=== PATIENT | female | born 1985 | race Two or more races ===

== ENCOUNTER 2016-09-04 04:11 | Emergency (ER) | payer OTHER ==
[2016-09-04 07:02] LABS: BASO % 0.2 % (0.0-1.0); EOS # 0.2 K/mm3 (0.0-0.50); EOS % 2.9 % (0.0-3.0); LARGE UNSTAINED CELL # 0.1 K/mm3 (0.0-0.4); LYMPH % 13.6 % (24.0-44.0); MEAN CORPUSCULAR HEMOGLOBIN 29.9 pg (27.0-33.0); MEAN CORPUSCULAR HGB CONC 35.4 g/dl (32.0-36.5); MEAN CORPUSCULAR VOLUME 84.7 fl (80.0-96.0); MONO # 0.3 K/mm3 (0.0-0.8); MONO % 4.4 % (0.0-5.0); NEUTROPHILS # 5.8 K/mm3 (1.8-7.7); NEUTROPHILS % 77.9 % (36.0-66.0); PLATELET COUNT, AUTOMATED 209 k/mm3 (150-450); RED CELL DISTRIBUTION WIDTH 13.6 % (11.5-14.5); WHITE BLOOD COUNT 7.4 K/mm3 (4.0-10.0)
[2016-09-04 07:23] LABS: CONTROL LINE HCG INT CTR LINE PRESENT
[2016-09-04 07:36] LABS: ALBUMIN 3.8 GM/DL (3.2-5.2); ALBUMIN/GLOBULIN RATIO 0.86 (1.00-1.93); ALKALINE PHOSPHATASE 144 U/L (45-117); ALT/SGPT 40 U/L (12-78); AMYLASE 53 U/L (25-115); ANION GAP 11 MEQ/L (8-16); AST/SGOT 25 U/L (15-37); BILIRUBIN,DIRECT < 0.1 MG/DL (0.0-0.2); BILIRUBIN,TOTAL 0.5 MG/DL (0.2-1.0); BLOOD UREA NITROGEN 13 MG/DL (7-18); CALCIUM LEVEL 8.2 MG/DL (8.5-10.1); CARBON DIOXIDE LEVEL 22 MEQ/L (21-32); CHLORIDE LEVEL 107 MEQ/L (98-107); CREATININE FOR GFR 0.59 MG/DL (0.55-1.02); GLOMERULAR FILTRATION RATE > 60.0 (>60); GLUCOSE, FASTING 89 MG/DL (70-105); POTASSIUM SERUM 3.9 MEQ/L (3.5-5.1); SODIUM LEVEL 140 MEQ/L (136-145); TOTAL PROTEIN 8.2 GM/DL (6.4-8.2)
--- NOTE | 2016-09-04 08:06 | EDDOCDS ---
Physician Documentation [facility] Name: Joleen Wilburn Age: 31 yrs Sex: Female : 1985 Arrival Date: 09/04/2016 Time: 04:11 Bed 13 Private MD: Disposition: 09/04/16 08:00 Discharged to Home/Self Care. Impression: Upper abdominal pain, unspecified. - Condition is Stable. - Discharge Instructions: Abdominal Pain, Adult, Gastritis, Adult. - Prescriptions for Tagamet HB 200 mg Oral tablet - take 1 tablet by ORAL route once daily 30 minutes before meals; 30 tablet. - Medication Reconciliation, Local Pharmacy Hours form. - Follow up: Mirta Shaw, Family Practice; When: 1 - 2 days. - Problem is new. - Symptoms have improved. - Notes: clear liquid diet for 24 hrs, then bland diet as discussed. try tagament. please follow up with PCP in 1-2 days. If persistent pain I would recommend a gallbladder ultrasound. Today all lab tests were normal and pain seems more of gastritis in nature. Return if fever, increasing pain or other concerns Historical: - Allergies: No known drug Allergies; - Home Meds: 1. Tylenol 325 mg Oral tab 2 tabs every 4-6 hours couple hours ago - PMHx: none; - PSHx: none; - Social history: Smoking status: Patient states was never smoker of tobacco. No barriers to communication noted, The patient speaks fluent Hungarian, Speaks appropriately for age. - Family history: Not pertinent. - : The pt / caregiver states he / she is not on anticoagulants. Home medication list is obtained from the patient. - Exposure Risk Screening:: None identified. 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 11 in. (149.86 cm); Pain 8/10; 08:03 BP 110 / 76 RA Supine (auto/reg); Pulse 98; js13 08:03 BP 112 / 74 RA Sitting (auto/reg); Pulse 99; js13 08:03 BP 115 / 76 RA Standing (auto/reg); Pulse 97; Resp 14; Temp 97.8(O); Pulse Ox 99% on js13 R/A; Pain 2/10; 04:17 Body Mass Index 26.86 (60.33 kg, 149.86 cm) ko2 MDM: 04:29 [facility] Payment Agreement was scanned into [employer] and attached to record. [facility] 06:17 Financial registration complete. pm4 06:33 Orthostatic VS ordered. cs11 06:33 IV Saline Lock ordered. cs11 06:33 NS 0.9% 1000 ml IV at bolus once ordered. cs11 06:34 CBC with Diff Ordered. EDMS 06:34 MED Profile Ordered. EDMS 06:34 Liver Profile Ordered. EDMS 06:34 Amylase Ordered. EDMS 06:34 Lipase Ordered. EDMS 06:34 HCG,Serum Qualitative Ordered. EDMS 07:30 CBC with Diff Reviewed. ml 07:30 HCG,Serum Qualitative Reviewed. ml 07:46 MED Profile Reviewed. ml 07:46 Liver Profile Reviewed. ml 07:46 Amylase Reviewed. ml 07:46 Lipase Reviewed. ml 07:46 HCG,Serum Qualitative Reviewed. ml Administered Medications: 06:50 Drug: NS 0.9% 1000 ml [sodium chloride 0.9 % intravenous solution] Route: IV; Rate: jp6 bolus; Site: left antecubital; 08:05 Follow up: IV Status: Completed infusion; IV Intake: 1000ml js13 Signatures: Dispatcher [employer] EDMS Whitney Durant MD MD ml Sullivan, Jennifer,RN RN js13 Gilles Ruano, DO cs11 Sally CappsRN RN gustavo2 Jael Starks [facility] Andrew Tanner, Reg Reg pm4 Marielena Parkinson RN jp6 The chart was reviewed and I authenticate all verbal orders and agree with the evaluation and treatment provided.Corrections: (The following items were deleted from the chart) 08:01 06:34 URINALYSIS+LAB ordered. EDMS EDMS 08:01 06:34 URINE CULTURE+GRACIELA ordered. EDMS EDMS Attachments: 04:29 [facility] Payment Agreement [facility] MTDD
--- NOTE | 2016-09-04 08:07 | EDDOCDS ---
Nurse's Notes [facility] Name: Joleen Wilburn Age: 31 yrs Sex: Female : 1985 Arrival Date: 09/04/2016 Time: 04:11 Bed 13 Private MD: Diagnosis: Upper abdominal pain, unspecified Presentation: 09/04 04:15 Presenting complaint: Patient states: upper abdominal pain and diarrhea that started ko2 last night as well as nausea. Pt got an IUD put in last week and has had some bleeding. Risk factors: the patient reports a small or scant amount of vaginal bleeding. Suicide/Homicide risk assessment- the patient denies having any suicidal and/or homicidal ideations and does not present with any other emotional, behavioral or mental health complaints. Status: The patient is a dependent. Transition of care: patient was not received from another setting of care. 04:15 Acuity: LO Level 3 ko2 04:15 Method Of Arrival: Walkin/Carried/Asstd ko2 04:22 Adult Sepsis Screening: The patient does not have new or worsening altered mentation. ko2 Patient's respiratory rate is less than 22. Systolic blood pressure is greater than 100. Patient has a qSOFA score of 0- Negative Sepsis Screen. Triage Assessment: 04:21 General: Appears in no apparent distress, Behavior is appropriate for age, cooperative. ko2 Pain: Location: right upper quadrant and left upper quadrant Pain currently is 8 out of 10 on a pain scale. HIV screening NA for this visit. The patient is triaged at the bedside. See Assessment in Nurses Notes section of ED record. Neurological: Level of Consciousness is awake, alert. Respiratory: Airway is patent. GI: Reports diarrhea. Derm: Skin is normal. 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 Tylenol 325 mg Oral tab 2 tabs every 4-6 hours couple hours ago - PMHx: none; - PSHx: none; - Social history: Smoking status: Patient states was never smoker of tobacco. No barriers to communication noted, The patient speaks fluent Mexican, Speaks appropriately for age. - Family history: Not pertinent. - : The pt / caregiver states he / she is not on anticoagulants. Home medication list is obtained from the patient. - Exposure Risk Screening:: None identified. Screenin:51 Screening information is obtained from the patient. Fall risk: No risks identified. jp6 Assistance ADL's: requires no assistance with activities of daily living. Abuse/DV Screen: The patient / caregiver reports he/she is: not in a situation that causes fear, pain or injury. Nutritional screening: No deficits noted. Advance Directives: Currently, there is no health care proxy. There is no active DNR order. There is no living will. home support is adequate. Assessment: 06:51 Reassessment: Patient appears in no apparent distress at this time. General: Appears in jp6 no apparent distress, well developed, well nourished, Behavior is appropriate for age, cooperative. Pain: Location: abdomen Pain currently is 5 out of 10 on a pain scale. Neurological: No deficits noted. EENT: No deficits noted. Cardiovascular: No deficits noted. Heart tones S1 S2 present. Respiratory: No deficits noted. Airway is patent Respiratory effort is even, unlabored, Respiratory pattern is regular, symmetrical, Breath sounds are clear bilaterally. GI: Abdomen is non- distended Bowel sounds present X 4 quads. present in umbilical area, right upper quadrant, left upper quadrant, right lower quadrant and left lower quadrant Abd is soft and non tender X 4 quads. pt does state high upper abd is sore with touch. : No deficits noted. Derm: Skin is pink, warm & dry. Musculoskeletal: No deficits noted. 07:26 General: Appears in no apparent distress, Behavior is appropriate for age, cooperative. js13 Pain: Pain currently is 4 out of 10 on a pain scale. Neurological: Level of Consciousness is awake, alert. Respiratory: Airway is patent Respiratory effort is even, unlabored, Respiratory pattern is regular, symmetrical, Breath sounds are clear. GI: Abdomen is non- distended Bowel sounds present X 4 quads. Abd is soft and non tender. Derm: Skin is pink, warm & dry. 07:26 General: Patient states that she has a 5 month old at home that she breast feeds js13 only and does not bottle feed at all. Patient states she needs to get home to feed infant as they do not pump and bottle feed. . Vital Signs: 04:17 BP 127 / 86; Pulse 103; Resp 16; Temp 97.8(TE); Pulse Ox 99% ; Weight 60.33 kg; Height ko2 4 ft. 11 in. (149.86 cm); Pain 8/10; 08:03 BP 110 / 76 RA Supine (auto/reg); Pulse 98; js13 08:03 BP 112 / 74 RA Sitting (auto/reg); Pulse 99; js13 08:03 BP 115 / 76 RA Standing (auto/reg); Pulse 97; Resp 14; Temp 97.8(O); Pulse Ox 99% on js13 R/A; Pain 2/10; 04:17 Body Mass Index 26.86 (60.33 kg, 149.86 cm) ko2 Vitals: 04:17 Log In Time: September 04, 2016 at 04:11. ko2 ED Course: 04:12 Patient visited by Andrew Tanner Reg. pm4 04:12 Patient moved to Waiting pm4 04:16 Triage Initiated ko2 04:28 Patient name changed from Joleen\S\\S\Essence-Lázaro\S\ to Joleen\S\ \S\Essence-Lázaro. EDMS 04:29 [facility] Payment Agreement was scanned into [employer] and attached to record. sl 06:02 Patient moved to Aug 06:15 Gilles Ruano DO is Attending Physician. cs11 06:15 Patient visited by Gilles Ruano DO. cs11 06:29 Marielena Parkinson,HARPER is Primary Nurse. jp6 06:51 The patient / caregiver is instructed regarding the plan of care and ED course. jp6 06:51 Inserted saline lock: 20 gauge in left antecubital area and blood collected. Labs jp6 drawn. (by ED staff). Sent per order to lab. 07:14 Patient visited by Veronica Garza PCA. jlf 07:16 Attending Physician role handed off by Gilles Ruano DO ml 07:16 Whitney Durant MD is Attending Physician. ml 07:29 Patient visited by Sara Fernandez RN. js13 08:00 [facility] is Referral Physician. ml 08:03 Discontinued IV lock intact, bleeding controlled, pressure dressing applied, No js13 redness/swelling at site. No procedures done that require assistance. Administered Medications: 06:50 Drug: NS 0.9% 1000 ml [sodium chloride 0.9 % intravenous solution] Route: IV; Rate: jp6 bolus; Site: left antecubital; 08:05 Follow up: IV Status: Completed infusion; IV Intake: 1000ml js13 Intake: 08:05 IV: 1000.00ml; Total: 1000.00ml. js13 Order Results: Lab Order: CBC with Diff; SPEC'M 09/04/16 06:49 Test: WHITE BLOOD COUNT; Value: 7.4; Range: 4.0-10.0; Units: K/mm3; Status: F Test: RED BLOOD COUNT; Value: 4.07; Range: 4.00-5.40; Units: M/mm3; Status: F Test: HEMOGLOBIN; Value: 12.2; Range: 12.0-16.0; Units: g/dl; Status: F Test: HEMATOCRIT; Value: 34.5; Range: 36.0-47.0; Abnormal: Below low normal; Units: %; Status: F Test: MEAN CORPUSCULAR VOLUME; Value: 84.7; Range: 80.0-96.0; Units: fl; Status: F Test: MEAN CORPUSCULAR HEMOGLOBIN; Value: 29.9; Range: 27.0-33.0; Units: pg; Status: F Test: MEAN CORPUSCULAR HGB CONC; Value: 35.4; Range: 32.0-36.5; Units: g/dl; Status: F Test: RED CELL DISTRIBUTION WIDTH; Value: 13.6; Range: 11.5-14.5; Units: %; Status: F Test: PLATELET COUNT, AUTOMATED; Value: 209; Range: 150-450; Units: k/mm3; Status: F Test: NEUTROPHILS %; Value: 77.9; Range: 36.0-66.0; Abnormal: Above high normal; Units: %; Status: F Test: LYMPH %; Value: 13.6; Range: 24.0-44.0; Abnormal: Below low normal; Units: %; Status: F Test: MONO %; Value: 4.4; Range: 0.0-5.0; Units: %; Status: F Test: EOS %; Value: 2.9; Range: 0.0-3.0; Units: %; Status: F Test: BASO %; Value: 0.2; Range: 0.0-1.0; Units: %; Status: F Test: LARGE UNSTAINED CELL %; Value: 1.0; Range: 0.0-4.0; Units: %; Status: F Test: NEUTROPHILS #; Value: 5.8; Range: 1.8-7.7; Units: K/mm3; Status: F Test: LYMPH #; Value: 1.0; Range: 1.5-4.5; Abnormal: Below low normal; Units: K/mm3; Status: F Test: MONO #; Value: 0.3; Range: 0.0-0.8; Units: K/mm3; Status: F Test: EOS #; Value: 0.2; Range: 0.0-0.50; Units: K/mm3; Status: F Test: BASO #; Value: 0.0; Range: 0.0-0.2; Units: K/mm3; Status: F Test: LARGE UNSTAINED CELL #; Value: 0.1; Range: 0.0-0.4; Units: K/mm3; Status: F Lab Order: MED Profile; [facility] 09/04/16 06:49 Test: GLUCOSE, FASTING; Value: 89; Range: 70-105; Units: MG/DL; Status: F Test: BLOOD UREA NITROGEN; Value: 13; Range: 7-18; Units: MG/DL; Status: F Test: CREATININE FOR GFR; Value: 0.59; Range: 0.55-1.02; Units: MG/DL; Status: F Test: SODIUM LEVEL; Range: 136-145; Units: MEQ/L; Status: I Test: POTASSIUM SERUM; Range: 3.5-5.1; Units: MEQ/L; Status: I Test: CHLORIDE LEVEL; Range: 98-107; Units: MEQ/L; Status: I Test: CARBON DIOXIDE LEVEL; Range: 21-32; Units: MEQ/L; Status: I Test: ANION GAP; Range: 8-16; Units: MEQ/L; Status: I Test: CALCIUM LEVEL; Range: 8.5-10.1; Units: MG/DL; Status: I Test: GLOMERULAR FILTRATION RATE; Value: > 60.0; Range: >60; Status: F Test: SODIUM LEVEL; Value: 140; Range: 136-145; Units: MEQ/L; Status: F Test: POTASSIUM SERUM; Value: 3.9; Range: 3.5-5.1; Units: MEQ/L; Status: F Test: CHLORIDE LEVEL; Value: 107; Range: 98-107; Units: MEQ/L; Status: F Test: CARBON DIOXIDE LEVEL; Value: 22; Range: 21-32; Units: MEQ/L; Status: F Test: ANION GAP; Value: 11; Range: 8-16; Units: MEQ/L; Status: F Test: CALCIUM LEVEL; Value: 8.2; Range: 8.5-10.1; Abnormal: Below low normal; Units: MG/DL; Status: F Test Note: ; Units are mL/min/1.73 m2 Chronic Kidney Disease Staging per NKF: Stage I & II GFR >=60 Normal to Mildly Decreased Stage III GFR 30-59 Moderately Decreased Stage IV GFR 15-29 Severely Decreased Stage V GFR <15 Very Little GFR Left ESRD GFR <15 on HAT AND CAP PARTS CUTTER HAND Lab Order: Liver Profile; SPEC'M 09/04/16 06:49 Test: AST/SGOT; Value: 25; Range: 15-37; Units: U/L; Status: F Test: ALT/SGPT; Value: 40; Range: 12-78; Units: U/L; Status: F Test: ALKALINE PHOSPHATASE; Value: 144; Range: 45-117; Abnormal: Above high normal; Units: U/L; Status: F Test: BILIRUBIN,TOTAL; Value: 0.5; Range: 0.2-1.0; Units: MG/DL; Status: F Test: BILIRUBIN,DIRECT; Value: < 0.1; Range: 0.0-0.2; Units: MG/DL; Status: F Test: TOTAL PROTEIN; Value: 8.2; Range: 6.4-8.2; Units: GM/DL; Status: F Test: ALBUMIN; Value: 3.8; Range: 3.2-5.2; Units: GM/DL; Status: F Test: ALBUMIN/GLOBULIN RATIO; Value: 0.86; Range: 1.00-1.93; Abnormal: Below low normal; Status: F Lab Order: Amylase; SPEC'M 09/04/16 06:49 Test: AMYLASE; Value: 53; Range: 25-115; Units: U/L; Status: F Lab Order: Lipase; SPEC'M 09/04/16 06:49 Test: LIPASE; Value: 134; Range: 73-393; Units: U/L; Status: F Lab Order: HCG,Serum Qualitative; SPEC'M 09/04/16 06:49 Test: HCG, SERUM QUALITATIVE; Value: NEGATIVE; Range: NEGATIVE; Status: F Outcome: 08:00 Discharge ordered by Provider. 08:03 Discharge Assessment: Patient awake, alert and oriented x 3. No cognitive and/or js13 functional deficits noted. Patient verbalized understanding of disposition instructions. patient administered narcotics - no. The following High Risk Discharge criteria are identified: None. Discharged to home ambulatory, with significant other. Condition: stable. Discharge instructions given to patient, significant other, Instructed on discharge instructions, follow up and referral plans. medication usage, Demonstrated understanding of instructions, medications, Pt was receptive of discharge instructions/ teaching. Prescriptions given X 1. No special radiology studies were completed. Property :Personal belongings accompany Pt. 08:05 Patient left the ED. js13 Signatures: Dispatcher [employer] EDMS Whitney Durant MD MD ml Newman, Jill New, RN RN Sara FairbanksRN RN js13 Gilles Ruano, DO cs11 Veronica Garza, SENIOR PORTFOLIO MANAGER SENIOR PORTFOLIO MANAGER hollyf Sally Capps RN RN Jael Sorto JessicaRN RN jp6 Andrew Tanner, Reg Reg pm4 Corrections: (The following items were deleted from the chart) 04:23 04:15 Presenting complaint: Patient states: upper abdominal pain and diarrhea that ko2 started last night as well as nausea ko2 04:23 04:15 Risk factors: the patient reports no vaginal bleeding. ko2 ko2 MTDD
--- NOTE | 2016-09-06 09:07 | EDDOCDS ---
Physician Documentation [facility] Name: Joleen Wilburn Age: 31 yrs Sex: Female : 1985 Arrival Date: 09/04/2016 Time: 04:11 Bed 13 Private MD: Disposition: 09/04/16 08:00 Discharged to Home/Self Care. Impression: Upper abdominal pain, unspecified. - Condition is Stable. - Discharge Instructions: Abdominal Pain, Adult, Gastritis, Adult. - Prescriptions for Tagamet HB 200 mg Oral tablet - take 1 tablet by ORAL route once daily 30 minutes before meals; 30 tablet. - Medication Reconciliation, Local Pharmacy Hours form. - Follow up: Mirta Shaw, Family Practice; When: 1 - 2 days. - Problem is new. - Symptoms have improved. - Notes: clear liquid diet for 24 hrs, then bland diet as discussed. try tagament. please follow up with PCP in 1-2 days. If persistent pain I would recommend a gallbladder ultrasound. Today all lab tests were normal and pain seems more of gastritis in nature. Return if fever, increasing pain or other concerns Historical: - Allergies: No known drug Allergies; - Home Meds: 1. Tylenol 325 mg Oral tab 2 tabs every 4-6 hours couple hours ago - PMHx: none; - PSHx: none; - Social history: Smoking status: Patient states was never smoker of tobacco. No barriers to communication noted, The patient speaks fluent Hungarian, Speaks appropriately for age. - Family history: Not pertinent. - : The pt / caregiver states he / she is not on anticoagulants. Home medication list is obtained from the patient. - Exposure Risk Screening:: None identified. 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 11 in. (149.86 cm); Pain 8/10; 08:03 BP 110 / 76 RA Supine (auto/reg); Pulse 98; js13 08:03 BP 112 / 74 RA Sitting (auto/reg); Pulse 99; js13 08:03 BP 115 / 76 RA Standing (auto/reg); Pulse 97; Resp 14; Temp 97.8(O); Pulse Ox 99% on js13 R/A; Pain 2/10; 04:17 Body Mass Index 26.86 (60.33 kg, 149.86 cm) ko2 MDM: 04:29 [facility] Payment Agreement was scanned into [employer] and attached to record. [facility] 06:17 Financial registration complete. pm4 06:33 Orthostatic VS ordered. cs11 06:33 IV Saline Lock ordered. cs11 06:33 NS 0.9% 1000 ml IV at bolus once ordered. cs11 06:34 CBC with Diff Ordered. EDMS 06:34 MED Profile Ordered. EDMS 06:34 Liver Profile Ordered. EDMS 06:34 Amylase Ordered. EDMS 06:34 Lipase Ordered. EDMS 06:34 HCG,Serum Qualitative Ordered. EDMS 07:30 CBC with Diff Reviewed. ml 07:30 HCG,Serum Qualitative Reviewed. ml 07:46 MED Profile Reviewed. ml 07:46 Liver Profile Reviewed. ml 07:46 Amylase Reviewed. ml 07:46 Lipase Reviewed. ml 07:46 HCG,Serum Qualitative Reviewed. 14:20 T-Sheet-- Draft Copy was scanned into [employer] and attached to record. gb Administered Medications: 06:50 Drug: NS 0.9% 1000 ml [sodium chloride 0.9 % intravenous solution] Route: IV; Rate: jp6 bolus; Site: left antecubital; 08:05 Follow up: IV Status: Completed infusion; IV Intake: 1000ml js13 Signatures: Dispatcher [employer] EDMI Whitney Durant MD MD Therese Garcia, Reg Reg gb Sara Fernandez,HARPER RN js13 Gilles Ruano, DO DO cs11 Sally Capps RN RN ko2 Jael Starks [facility] Andrew Tanner, Reg Reg pm4 Marielena Parkinson RN jp6 The chart was reviewed and I authenticate all verbal orders and agree with the evaluation and treatment provided.Corrections: (The following items were deleted from the chart) 08:01 06:34 URINALYSIS+LAB ordered. EDMS EDMS 08:01 06:34 URINE CULTURE+GRACIELA ordered. EDMS EDMS Attachments: 04:29 [facility] Payment Agreement [facility] 14:20 T-Sheet-- Draft Copy gb Chart Complete MTDD
--- NOTE | 2016-09-06 09:07 | EDDOCDS ---
Nurse's Notes [facility] Name: Joleen Wilburn Age: 31 yrs Sex: Female : 1985 Arrival Date: 09/04/2016 Time: 04:11 Bed 13 Private MD: Diagnosis: Upper abdominal pain, unspecified Presentation: 09/04 04:15 Presenting complaint: Patient states: upper abdominal pain and diarrhea that started ko2 last night as well as nausea. Pt got an IUD put in last week and has had some bleeding. Risk factors: the patient reports a small or scant amount of vaginal bleeding. Suicide/Homicide risk assessment- the patient denies having any suicidal and/or homicidal ideations and does not present with any other emotional, behavioral or mental health complaints. Status: The patient is a dependent. Transition of care: patient was not received from another setting of care. 04:15 Acuity: LO Level 3 ko2 04:15 Method Of Arrival: Walkin/Carried/Asstd ko2 04:22 Adult Sepsis Screening: The patient does not have new or worsening altered mentation. ko2 Patient's respiratory rate is less than 22. Systolic blood pressure is greater than 100. Patient has a qSOFA score of 0- Negative Sepsis Screen. Triage Assessment: 04:21 General: Appears in no apparent distress, Behavior is appropriate for age, cooperative. ko2 Pain: Location: right upper quadrant and left upper quadrant Pain currently is 8 out of 10 on a pain scale. HIV screening NA for this visit. The patient is triaged at the bedside. See Assessment in Nurses Notes section of ED record. Neurological: Level of Consciousness is awake, alert. Respiratory: Airway is patent. GI: Reports diarrhea. Derm: Skin is normal. HAND OUTSIDE CUTTER: 04:17 LMP N/A - control method ko2 Historical: - Allergies: No known drug Allergies; - Home Meds: 1. Tylenol 325 mg Oral tab 2 tabs every 4-6 hours couple hours ago - PMHx: none; - PSHx: none; - Social history: Smoking status: Patient states was never smoker of tobacco. No barriers to communication noted, The patient speaks fluent Peruvian, Speaks appropriately for age. - Family history: Not pertinent. - : The pt / caregiver states he / she is not on anticoagulants. Home medication list is obtained from the patient. - Exposure Risk Screening:: None identified. Screenin:51 Screening information is obtained from the patient. Fall risk: No risks identified. jp6 Assistance ADL's: requires no assistance with activities of daily living. Abuse/DV Screen: The patient / caregiver reports he/she is: not in a situation that causes fear, pain or injury. Nutritional screening: No deficits noted. Advance Directives: Currently, there is no health care proxy. There is no active DNR order. There is no living will. home support is adequate. Assessment: 06:51 Reassessment: Patient appears in no apparent distress at this time. General: Appears in jp6 no apparent distress, well developed, well nourished, Behavior is appropriate for age, cooperative. Pain: Location: abdomen Pain currently is 5 out of 10 on a pain scale. Neurological: No deficits noted. EENT: No deficits noted. Cardiovascular: No deficits noted. Heart tones S1 S2 present. Respiratory: No deficits noted. Airway is patent Respiratory effort is even, unlabored, Respiratory pattern is regular, symmetrical, Breath sounds are clear bilaterally. GI: Abdomen is non- distended Bowel sounds present X 4 quads. present in umbilical area, right upper quadrant, left upper quadrant, right lower quadrant and left lower quadrant Abd is soft and non tender X 4 quads. pt does state high upper abd is sore with touch. : No deficits noted. Derm: Skin is pink, warm & dry. Musculoskeletal: No deficits noted. 07:26 General: Appears in no apparent distress, Behavior is appropriate for age, cooperative. js13 Pain: Pain currently is 4 out of 10 on a pain scale. Neurological: Level of Consciousness is awake, alert. Respiratory: Airway is patent Respiratory effort is even, unlabored, Respiratory pattern is regular, symmetrical, Breath sounds are clear. GI: Abdomen is non- distended Bowel sounds present X 4 quads. Abd is soft and non tender. Derm: Skin is pink, warm & dry. 07:26 General: Patient states that she has a 5 month old at home that she breast feeds js13 only and does not bottle feed at all. Patient states she needs to get home to feed infant as they do not pump and bottle feed. . Vital Signs: 04:17 BP 127 / 86; Pulse 103; Resp 16; Temp 97.8(TE); Pulse Ox 99% ; Weight 60.33 kg; Height ko2 4 ft. 11 in. (149.86 cm); Pain 8/10; 08:03 BP 110 / 76 RA Supine (auto/reg); Pulse 98; js13 08:03 BP 112 / 74 RA Sitting (auto/reg); Pulse 99; js13 08:03 BP 115 / 76 RA Standing (auto/reg); Pulse 97; Resp 14; Temp 97.8(O); Pulse Ox 99% on js13 R/A; Pain 2/10; 04:17 Body Mass Index 26.86 (60.33 kg, 149.86 cm) ko2 Vitals: 04:17 Log In Time: September 04, 2016 at 04:11. ko2 ED Course: 04:12 Patient visited by Andrew Tanner Reg. pm4 04:12 Patient moved to Waiting pm4 04:16 Triage Initiated ko2 04:28 Patient name changed from Joleen\S\\S\Essence-Lázaro\S\ to Jolene\S\ \S\Essence-Lázaro. EDMS 04:29 [facility] Payment Agreement was scanned into [employer] and attached to record. slh 06:02 Patient moved to Aug 06:15 Gilles Ruano DO is Attending Physician. cs11 06:15 Patient visited by Gilles Ruano DO. cs11 06:29 Marielena Parkinson,HARPER is Primary Nurse. jp6 06:51 The patient / caregiver is instructed regarding the plan of care and ED course. jp6 06:51 Inserted saline lock: 20 gauge in left antecubital area and blood collected. Labs jp6 drawn. (by ED staff). Sent per order to lab. 07:14 Patient visited by Veronica Garza PCA. jlf 07:16 Attending Physician role handed off by Gilles Ruano DO ml 07:16 Whitney Durant MD is Attending Physician. ml 07:29 Patient visited by Sara Fernandez RN. js13 08:00 [facility] is Referral Physician. ml 08:03 Discontinued IV lock intact, bleeding controlled, pressure dressing applied, No js13 redness/swelling at site. No procedures done that require assistance. 14:20 T-Sheet-- Draft Copy was scanned into [employer] and attached to record. gb Administered Medications: 06:50 Drug: NS 0.9% 1000 ml [sodium chloride 0.9 % intravenous solution] Route: IV; Rate: jp6 bolus; Site: left antecubital; 08:05 Follow up: IV Status: Completed infusion; IV Intake: 1000ml js13 Intake: 08:05 IV: 1000.00ml; Total: 1000.00ml. js13 Order Results: Lab Order: CBC with Diff; SPEC'M 09/04/16 06:49 Test: WHITE BLOOD COUNT; Value: 7.4; Range: 4.0-10.0; Units: K/mm3; Status: F Test: RED BLOOD COUNT; Value: 4.07; Range: 4.00-5.40; Units: M/mm3; Status: F Test: HEMOGLOBIN; Value: 12.2; Range: 12.0-16.0; Units: g/dl; Status: F Test: HEMATOCRIT; Value: 34.5; Range: 36.0-47.0; Abnormal: Below low normal; Units: %; Status: F Test: MEAN CORPUSCULAR VOLUME; Value: 84.7; Range: 80.0-96.0; Units: fl; Status: F Test: MEAN CORPUSCULAR HEMOGLOBIN; Value: 29.9; Range: 27.0-33.0; Units: pg; Status: F Test: MEAN CORPUSCULAR HGB CONC; Value: 35.4; Range: 32.0-36.5; Units: g/dl; Status: F Test: RED CELL DISTRIBUTION WIDTH; Value: 13.6; Range: 11.5-14.5; Units: %; Status: F Test: PLATELET COUNT, AUTOMATED; Value: 209; Range: 150-450; Units: k/mm3; Status: F Test: NEUTROPHILS %; Value: 77.9; Range: 36.0-66.0; Abnormal: Above high normal; Units: %; Status: F Test: LYMPH %; Value: 13.6; Range: 24.0-44.0; Abnormal: Below low normal; Units: %; Status: F Test: MONO %; Value: 4.4; Range: 0.0-5.0; Units: %; Status: F Test: EOS %; Value: 2.9; Range: 0.0-3.0; Units: %; Status: F Test: BASO %; Value: 0.2; Range: 0.0-1.0; Units: %; Status: F Test: LARGE UNSTAINED CELL %; Value: 1.0; Range: 0.0-4.0; Units: %; Status: F Test: NEUTROPHILS #; Value: 5.8; Range: 1.8-7.7; Units: K/mm3; Status: F Test: LYMPH #; Value: 1.0; Range: 1.5-4.5; Abnormal: Below low normal; Units: K/mm3; Status: F Test: MONO #; Value: 0.3; Range: 0.0-0.8; Units: K/mm3; Status: F Test: EOS #; Value: 0.2; Range: 0.0-0.50; Units: K/mm3; Status: F Test: BASO #; Value: 0.0; Range: 0.0-0.2; Units: K/mm3; Status: F Test: LARGE UNSTAINED CELL #; Value: 0.1; Range: 0.0-0.4; Units: K/mm3; Status: F Lab Order: MED Profile; SPEC'M 09/04/16 06:49 Test: GLUCOSE, FASTING; Value: 89; Range: 70-105; Units: MG/DL; Status: F Test: BLOOD UREA NITROGEN; Value: 13; Range: 7-18; Units: MG/DL; Status: F Test: CREATININE FOR GFR; Value: 0.59; Range: 0.55-1.02; Units: MG/DL; Status: F Test: SODIUM LEVEL; Range: 136-145; Units: MEQ/L; Status: I Test: POTASSIUM SERUM; Range: 3.5-5.1; Units: MEQ/L; Status: I Test: CHLORIDE LEVEL; Range: 98-107; Units: MEQ/L; Status: I Test: CARBON DIOXIDE LEVEL; Range: 21-32; Units: MEQ/L; Status: I Test: ANION GAP; Range: 8-16; Units: MEQ/L; Status: I Test: CALCIUM LEVEL; Range: 8.5-10.1; Units: MG/DL; Status: I Test: GLOMERULAR FILTRATION RATE; Value: > 60.0; Range: >60; Status: F Test: SODIUM LEVEL; Value: 140; Range: 136-145; Units: MEQ/L; Status: F Test: POTASSIUM SERUM; Value: 3.9; Range: 3.5-5.1; Units: MEQ/L; Status: F Test: CHLORIDE LEVEL; Value: 107; Range: 98-107; Units: MEQ/L; Status: F Test: CARBON DIOXIDE LEVEL; Value: 22; Range: 21-32; Units: MEQ/L; Status: F Test: ANION GAP; Value: 11; Range: 8-16; Units: MEQ/L; Status: F Test: CALCIUM LEVEL; Value: 8.2; Range: 8.5-10.1; Abnormal: Below low normal; Units: MG/DL; Status: F Test Note: ; Units are mL/min/1.73 m2 Chronic Kidney Disease Staging per NKF: Stage I & II GFR >=60 Normal to Mildly Decreased Stage III GFR 30-59 Moderately Decreased Stage IV GFR 15-29 Severely Decreased Stage V GFR <15 Very Little GFR Left ESRD GFR <15 on SOFTWARE CLERK Lab Order: Liver Profile; SPEC'M 09/04/16 06:49 Test: AST/SGOT; Value: 25; Range: 15-37; Units: U/L; Status: F Test: ALT/SGPT; Value: 40; Range: 12-78; Units: U/L; Status: F Test: ALKALINE PHOSPHATASE; Value: 144; Range: 45-117; Abnormal: Above high normal; Units: U/L; Status: F Test: BILIRUBIN,TOTAL; Value: 0.5; Range: 0.2-1.0; Units: MG/DL; Status: F Test: BILIRUBIN,DIRECT; Value: < 0.1; Range: 0.0-0.2; Units: MG/DL; Status: F Test: TOTAL PROTEIN; Value: 8.2; Range: 6.4-8.2; Units: GM/DL; Status: F Test: ALBUMIN; Value: 3.8; Range: 3.2-5.2; Units: GM/DL; Status: F Test: ALBUMIN/GLOBULIN RATIO; Value: 0.86; Range: 1.00-1.93; Abnormal: Below low normal; Status: F Lab Order: Amylase; SPEC'M 09/04/16 06:49 Test: AMYLASE; Value: 53; Range: 25-115; Units: U/L; Status: F Lab Order: Lipase; SPEC'M 09/04/16 06:49 Test: LIPASE; Value: 134; Range: 73-393; Units: U/L; Status: F Lab Order: HCG,Serum Qualitative; SPEC'M 09/04/16 06:49 Test: HCG, SERUM QUALITATIVE; Value: NEGATIVE; Range: NEGATIVE; Status: F Outcome: 08:00 Discharge ordered by Provider. 08:03 Discharge Assessment: Patient awake, alert and oriented x 3. No cognitive and/or js13 functional deficits noted. Patient verbalized understanding of disposition instructions. patient administered narcotics - no. The following High Risk Discharge criteria are identified: None. Discharged to home ambulatory, with significant other. Condition: stable. Discharge instructions given to patient, significant other, Instructed on discharge instructions, follow up and referral plans. medication usage, Demonstrated understanding of instructions, medications, Pt was receptive of discharge instructions/ teaching. Prescriptions given X 1. No special radiology studies were completed. Property :Personal belongings accompany Pt. 08:05 Patient left the ED. js13 Signatures: Dispatcher [employer] EDMS Whitney Durant MD MD ml Newman, Jill New, RN RN Therese Green, Reg Reg gb Sara Fernandez,RN RN js13 Gilles Ruano, DO cs11 Veronica Garza, HYDRAULIC ELEVATOR CONSTRUCTOR HYDRAULIC ELEVATOR CONSTRUCTOR Sally Cornejo,RN Jael Mobley JessicaRN RN [id number] Andrew Tanner, Reg Reg pm4 Corrections: (The following items were deleted from the chart) 04:23 04:15 Presenting complaint: Patient states: upper abdominal pain and diarrhea that ko2 started last night as well as nausea ko2 04:23 04:15 Risk factors: the patient reports no vaginal bleeding. ko2 ko2 Chart Complete MTDD
--- NOTE | 2016-09-06 09:07 | EDDOCDS ---
Physician Documentation [facility] Name: Joleen Wilburn Age: 31 yrs Sex: Female : 1985 Arrival Date: 09/04/2016 Time: 04:11 Bed 13 Private MD: Disposition: 09/04/16 08:00 Discharged to Home/Self Care. Impression: Upper abdominal pain, unspecified. - Condition is Stable. - Discharge Instructions: Abdominal Pain, Adult, Gastritis, Adult. - Prescriptions for Tagamet HB 200 mg Oral tablet - take 1 tablet by ORAL route once daily 30 minutes before meals; 30 tablet. - Medication Reconciliation, Local Pharmacy Hours form. - Follow up: Mirta Shaw, Family Practice; When: 1 - 2 days. - Problem is new. - Symptoms have improved. - Notes: clear liquid diet for 24 hrs, then bland diet as discussed. try tagament. please follow up with PCP in 1-2 days. If persistent pain I would recommend a gallbladder ultrasound. Today all lab tests were normal and pain seems more of gastritis in nature. Return if fever, increasing pain or other concerns Historical: - Allergies: No known drug Allergies; - Home Meds: 1. Tylenol 325 mg Oral tab 2 tabs every 4-6 hours couple hours ago - PMHx: none; - PSHx: none; - Social history: Smoking status: Patient states was never smoker of tobacco. No barriers to communication noted, The patient speaks fluent Georgian, Speaks appropriately for age. - Family history: Not pertinent. - : The pt / caregiver states he / she is not on anticoagulants. Home medication list is obtained from the patient. - Exposure Risk Screening:: None identified. 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 11 in. (149.86 cm); Pain 8/10; 08:03 BP 110 / 76 RA Supine (auto/reg); Pulse 98; js13 08:03 BP 112 / 74 RA Sitting (auto/reg); Pulse 99; js13 08:03 BP 115 / 76 RA Standing (auto/reg); Pulse 97; Resp 14; Temp 97.8(O); Pulse Ox 99% on js13 R/A; Pain 2/10; 04:17 Body Mass Index 26.86 (60.33 kg, 149.86 cm) ko2 MDM: 04:29 [facility] Payment Agreement was scanned into [employer] and attached to record. [facility] 06:17 Financial registration complete. pm4 06:33 Orthostatic VS ordered. cs11 06:33 IV Saline Lock ordered. cs11 06:33 NS 0.9% 1000 ml IV at bolus once ordered. cs11 06:34 CBC with Diff Ordered. EDMS 06:34 MED Profile Ordered. EDMS 06:34 Liver Profile Ordered. EDMS 06:34 Amylase Ordered. EDMS 06:34 Lipase Ordered. EDMS 06:34 HCG,Serum Qualitative Ordered. EDMS 07:30 CBC with Diff Reviewed. ml 07:30 HCG,Serum Qualitative Reviewed. ml 07:46 MED Profile Reviewed. ml 07:46 Liver Profile Reviewed. ml 07:46 Amylase Reviewed. ml 07:46 Lipase Reviewed. ml 07:46 HCG,Serum Qualitative Reviewed. 14:20 T-Sheet-- Draft Copy was scanned into [employer] and attached to record. gb Administered Medications: 06:50 Drug: NS 0.9% 1000 ml [sodium chloride 0.9 % intravenous solution] Route: IV; Rate: jp6 bolus; Site: left antecubital; 08:05 Follow up: IV Status: Completed infusion; IV Intake: 1000ml js13 Signatures: Dispatcher [employer] EDSC Whitney Durant MD MD Therese Garcia, Reg Reg gb Sara Fernandez,HARPER RN js13 Gilles Ruano, DO DO cs11 Sally Capps RN RN ko2 Jael Starks [facility] Andrew Tanner, Reg Reg pm4 Marielena Parkinson RN jp6 The chart was reviewed and I authenticate all verbal orders and agree with the evaluation and treatment provided.Corrections: (The following items were deleted from the chart) 08:01 06:34 URINALYSIS+LAB ordered. EDMS EDMS 08:01 06:34 URINE CULTURE+GRACIELA ordered. EDMS EDMS Attachments: 04:29 [facility] Payment Agreement [facility] 14:20 T-Sheet-- Draft Copy gb Chart Complete MTDD
== END 2016-09-04 08:05 | disposition home or self-care (01) ==
LOC: M ED 04:11
DX: K52.9 Noninfective gastroenteritis and colitis, unspecified (principal)

== ENCOUNTER 2017-02-09 20:52 | Emergency (ER) | payer OTHER ==
[~2017-02-09] VITALS: Ht 149.9 cm; Wt 55.2 kg
[2017-02-09] MEDS ORDERED: TYLE325T5 PO (21:06)
[2017-02-09] MEDS ORDERED: NS 1,000 ML IV SCH (21:47)
[2017-02-09] MEDS ORDERED: ONDANSETRON 4MG/2ML VIAL (J2405) IV ONE (22:00)
[2017-02-09 22:16] LABS: BASO % 0.4 % (0.0-1.0); EOS % 0.1 % (0.0-3.0); LARGE UNSTAINED CELL # 0.1 K/mm3 (0.0-0.4); LARGE UNSTAINED CELL % 1.5 % (0.0-4.0); LYMPH # 1.5 K/mm3 (1.5-4.5); LYMPH % 20.3 % (24.0-44.0); MEAN CORPUSCULAR HEMOGLOBIN 29.5 pg (27.0-33.0); MEAN CORPUSCULAR HGB CONC 35.6 g/dl (32.0-36.5); MEAN CORPUSCULAR VOLUME 82.8 fl (80.0-96.0); MONO # 0.4 K/mm3 (0.0-0.8); MONO % 4.8 % (0.0-5.0); NEUTROPHILS # 5.5 K/mm3 (1.8-7.7); NEUTROPHILS % 72.8 % (36.0-66.0); PLATELET COUNT, AUTOMATED 192 k/mm3 (150-450); RED CELL DISTRIBUTION WIDTH 12.8 % (11.5-14.5); WHITE BLOOD COUNT 7.5 K/mm3 (4.0-10.0)
[2017-02-09 22:25] LABS: CONTROL LINE HCG INT CTR LINE PRESENT
[2017-02-09 22:33] LABS: ALBUMIN 4.2 GM/DL (3.2-5.2); ALBUMIN/GLOBULIN RATIO 1.14 (1.00-1.93); ALKALINE PHOSPHATASE 132 U/L (45-117); ALT/SGPT 24 U/L (12-78); AMYLASE 44 U/L (25-115); ANION GAP 7 MEQ/L (8-16); AST/SGOT 20 U/L (15-37); BILIRUBIN,DIRECT 0.2 MG/DL (0.0-0.2); BILIRUBIN,TOTAL 0.7 MG/DL (0.2-1.0); BLOOD UREA NITROGEN 10 MG/DL (7-18); CALCIUM LEVEL 8.4 MG/DL (8.5-10.1); CARBON DIOXIDE LEVEL 24 MEQ/L (21-32); CHLORIDE LEVEL 104 MEQ/L (98-107); CREATININE FOR GFR 0.66 MG/DL (0.55-1.02); GLOMERULAR FILTRATION RATE > 60.0 (>60); GLUCOSE, FASTING 104 MG/DL (70-105); POTASSIUM SERUM 3.6 MEQ/L (3.5-5.1); SODIUM LEVEL 135 MEQ/L (136-145); TOTAL PROTEIN 7.9 GM/DL (6.4-8.2)
--- NOTE | 2017-02-09 22:40 | REPUSA ---
Clinical history: Right upper quadrant pain. Findings: The pancreas is limited in visualization secondary to overlying bowel gas, but appears florencio sly unremarkable. The liver demonstrates uniform echotexture and echogenicity, with no mass lesions. The gallbladder is unremarkable. The common bile duct measures 2 mm and is within normal limits. The right kidney measures 8.7 cm in length and is unremarkable. There is no ascites. Impression: Unremarkable ultrasound examination of the right upper quadrant.
[2017-02-09] MEDS ORDERED: PROT1TAB2 PO (23:08)
[2017-02-09] MEDS ORDERED: ZOFR4TAB3 PO (23:08)
[2017-02-09 23:15] VITALS: BP 97/56
--- NOTE | 2017-02-10 07:00 | REP ---
Clinical: Epigastric and abdominal pain. Technique: Upright view of the chest with supine and upright views of the abdomen and pelvis. Findings: Frontal upright view of the chest demonstrates no acute cardiopulmonary process or free air below the diaphragm to suspect pneumoperitoneum. Supine and upright views of the abdomen and pelvis demonstrate nonspecific bowel gas pattern without obstruction or perforation. No organomegaly. No abnormal calcifications. Skeletal structures normal for age. IUD identified within the pelvis. Impression: Nonspecific bowel gas pattern. Signed by Keaton Bentley MD 02/10/2017 06:51 A
== END 2017-02-09 23:27 | disposition home or self-care (01) ==
LOC: M ED 20:52
DX: R10.9 Unspecified abdominal pain (principal); R11.0 Nausea
CPT/HCPCS: 74022; 76705; 80048; 80076; 81001; 82150; 83690; 84703; 85025; 87086; 96374; 99283; J2405

== ENCOUNTER → 2017-02-09 | Outpatient (REF) | payer OTHER ==
[~2017-02-09] MED LIST: PROT1TAB2 PO; TYLE325T5 PO; ZOFR4TAB3 PO
== END ==
LOC: M SFHCLERA 19:21
PROVIDERS: ATTEND Nurse Practitioner Family
DX: R10.30 Lower abdominal pain, unspecified (principal)

== ENCOUNTER 2018-10-01 08:47 | Day surgery (SDC) | payer OTHER ==
[~2018-10-01] VITALS: Ht 149.9 cm; Wt 51.3 kg
[~2018-10-01 08:47] MED LIST changes: +IBUP80TA; +LR 1,000 ML IV ONE; +OXYC1TAB23 PO; +SYNT50TA; +ZOFR4TAB14 PO; -ZOFR4TAB3 PO
[2018-10-01 09:39] LABS: HEMATOCRIT 35.3 % (36.0-47.0); HEMOGLOBIN 12.4 g/dl (12.0-15.5); MEAN CORPUSCULAR HEMOGLOBIN 29.9 pg (27.0-33.0); MEAN CORPUSCULAR HGB CONC 35.1 g/dl (32.0-36.5); MEAN CORPUSCULAR VOLUME 85.1 fl (80.0-96.0); PLATELET COUNT, AUTOMATED 195 10^3/uL (150-450); RED BLOOD COUNT 4.15 10^6/uL (4.00-5.40); WHITE BLOOD COUNT 6.9 10^3/uL (4.0-10.0)
[2018-10-01 09:45] LABS: HCG, SERUM QUALITATIVE NEGATIVE (NEGATIVE)
[2018-10-01] MEDS ORDERED: ROCURONIUM BROMIDE 50 MG/5 ML VIAL As Ordered ONE (10:15)
[2018-10-01] MEDS ORDERED: PROPOFOL 200 MG/20 ML VIAL As Ordered ONE (10:15)
[2018-10-01] MEDS ORDERED: fentaNYL 250 MCG/5 ML INJECTION (J3010) As Ordered ONE (10:15)
[2018-10-01] MEDS ORDERED: LIDOCAINE 2% INJ 100 MG/5 ML SDV (FOR ANES.) As Ordered ONE (10:15)
[2018-10-01] MEDS ORDERED: MIDAZOLAM INJ 2 MG/2 ML VIAL (J2250) As Ordered ONE (10:15)
[2018-10-01] MEDS ORDERED: ONDANSETRON 4MG/2ML VIAL (J2405) As Ordered ONE ×2 (10:15→18:22)
[2018-10-01] MEDS ORDERED: dexameTHASONE 4 MG/ML 1ML VIAL (J1100) As Ordered ONE (10:15)
[2018-10-01] MEDS ORDERED: KETOROLAC 60 MG/2 ML VIAL (J1885) As Ordered ONE (10:16)
[2018-10-01] MEDS ORDERED: BUPIVACAINE HCL 0.25% 30 ML VIAL As Ordered ONE (10:43)
[2018-10-01] MEDS ORDERED: PHENYLephrine HCL 500 MCG/5 ML (100MCG/ML) SYRINGE (J2370) As Ordered ONE (11:33)
[2018-10-01] MEDS ORDERED: GLYCOPYRROLATE INJ 0.2 MG/ML 2 ML VIAL As Ordered ONE (11:57)
[2018-10-01] MEDS ORDERED: NEOSTIGMINE 10 MG/10 ML VIAL (J2710) As Ordered ONE (11:57)
[2018-10-01] MEDS ORDERED: HYDROmorphone HCL 2 MG/ML 1ML VIAL (J1170) As Ordered ONE (12:03)
[2018-10-01] MEDS ORDERED: SILVER NITRATE APPLICATOR As Ordered ONE (12:11)
[2018-10-01] MEDS ORDERED: LR 1,000 ML IV SCH (13:00)
[2018-10-01] MEDS ORDERED: fentaNYL 100 MCG/2 ML INJECTION (J3010) IV PRN (13:00)
[2018-10-01] MEDS ORDERED: KETOROLAC 30 MG/ML VIAL (J1885) IV ONE (13:00)
[2018-10-01] MEDS ORDERED: PERCOCET 5MG/325MG TAB PO PRN ×2 (13:00)
[2018-10-01] MEDS ORDERED: ONDANSETRON 4MG/2ML VIAL (J2405) IV PRN (13:00)
[2018-10-01 19:05] VITALS: BP 109/62
--- NOTE | 2018-10-02 12:15 | RO ---
DATE OF PROCEDURE: 10/01/2018 PREPROCEDURE DIAGNOSES: Misplaced intrauterine device (IUD). POSTPROCEDURE DIAGNOSES: Intrauterine device in the abdomen in the lower pelvis. PROCEDURE: Diagnostic hysteroscopy and then operative laparoscopy with removal of the IUD. SURGEON: Dr. Frank EDUCATIONAL PROGRAMMING DIRECTOR: Dr. Guillaume ANESTHESIA: General. FLUIDS: 700 mL of lactated Ringer (LR). URINE OUTPUT: 200 mL via Perdue catheter. ESTIMATED BLOOD LOSS (EBL): 5 mL. COMPLICATIONS: None. ANTIBIOTICS: None. DETAILED PROCEDURE DESCRIPTION: The risks, benefits, indications, and alternatives of the procedure were reviewed with the patient and informed consent was obtained. The patient was taken to the operating room where general anesthesia was obtained without difficulty. The patient was then placed in the lithotomy position using gel padded Evan stirrups. An examination under anesthesia was then performed and it was significant for a midline, mobile, 8 week sized, anteverted uterus. The patient was then prepped and draped in the usual sterile fashion. A surgical time-out was then performed, and the patient's identity and planned procedures were verified with the operative team. A Perdue catheter was inserted into the bladder first. A sterile speculum was then placed into the patient's vagina and the cervix was visualized. A single-tooth tenaculum was used to grasp the anterior lip of the cervix. A uterine sound was then gently inserted into the uterus, which sounded to 8 cm in length. The cervix was then gently serially dilated to size 12 Sami with the Salbador dilator. The hysteroscope was first primed. The hysteroscope was then advanced into the endocervical canal under direct visualization. After distention of the uterus with warm saline, a systematic examination of the intrauterine cavity was performed. The tubal ostia were visualized bilaterally. The IUD was not within the uterus. No lesions or abnormalities were noted within the uterus. The hysteroscope was then removed. A Corhythm uterine manipulator was then placed into the uterus as a means to manipulate it, and the single-tooth tenaculum was then removed. The speculum was then removed patient's vagina. The decision was made to then proceed with laparoscopy. Gloves were then exchanged. A re prep was performed. Then, attention was then turned to the patient's abdomen. A 5 mm skin incision was then made in the inferior aspect of the umbilicus after injection of 0.25% Marcaine. A 5 mm trocar and sleeve were then carefully introduced into the peritoneal cavity under direct visualization at a 90 degree angle while tenting up the abdominal wall. Intraperitoneal placement was confirmed under direct visualization and entry pressure was noted to be less than 5 mmHg. A pneumoperitoneum was then obtained with several liters of CO2 gas. Upon entry into the peritoneal cavity, structures immediately below the incision were inspected and found to be free of injury. A survey of the patient's abdomen and pelvis was notable for a normal liver and normal gallbladder, and a normal gastric curve. The pelvis was then inspected. The uterus appeared normal. The ovaries and fallopian tubes appeared normal bilaterally. The IUD was then identified in the posterior cul-de-sac floating within a moderate amount of free serosanguinas fluid. The decision was then made to proceed with an operative laparoscopy. A second 5 mm trocar was then inserted into the left lower quadrant under direct visualization after a skin incision was made with a scalpel. The IUD was then grasped in the posterior cul-de-sac and removed in its entirety through the left lower quadrant port site. The IUD was then handed off the field and sent to pathology for review. A suction stone rigger was then used to remove the fluid in the posterior cul-de-sac. Excellent hemostasis was then observed and there was no bleeding. Further inspection of the pelvis revealed no other abnormalities, lesions or defects. The gas was then turned off and all CO2 was removed from the patient's abdomen. The left lower quadrant trocar was then removed under direct visualization and there was no bleeding seen from the trocar site. All remaining trocars were then removed from the abdomen. The skin incisions were then reapproximated with #4-0 Monocryl suture and covered with Dermabond. There was excellent hemostasis. The Hulka uterine manipulator was then removed from the uterus. The tenaculum sites were made hemostatic with silver nitrate sticks. All instruments were then confirmed to have been removed from the vagina after a vaginal sweep. The patient's Perdue catheter was then removed. At the completion of the case, the sponge instrument and needle counts were correct times three. The patient tolerated the procedure well and was taken to postanesthesia care unit (PACU) in stable condition. [facility]
== END 2018-10-01 19:10 | disposition home or self-care (01) ==
LOC: M SDC 08:47
PROVIDERS: ATTEND Obstetrics & Gynecology
DX: T83.32XA Displacement of intrauterine contraceptive device, initial encounter (principal); X58.XXXA Exposure to other specified factors, initial encounter; Y93.9 Activity, unspecified; Y92.9 Unspecified place or not applicable; Y99.9 Unspecified external cause status; E03.9 Hypothyroidism, unspecified; Z79.899 Other long term (current) drug therapy
CPT/HCPCS: 36415; 49329; 58555; 84703; 85027; 86850; 86900; 86901; 88300; J1100; J1170; J1885; J2250; J2370; J2405; J2710; J3010

== ENCOUNTER → 2019-05-15 | Outpatient (REF) | payer OTHER ==
[~2019-05-15] MED LIST changes: -LR 1,000 ML IV ONE
== END ==
LOC: M LAB REF 17:09
PROVIDERS: ATTEND Internal Medicine Endocrinology, Diabetes & Metabolism
DX: E04.1 Nontoxic single thyroid nodule (principal)

== ENCOUNTER 2020-02-25 09:57 | Day surgery (SDC) | payer OTHER ==
[~2020-02-25] VITALS: Ht 149.9 cm; Wt 51.3 kg
[~2020-02-25 09:57] MED LIST changes: +LIDOCAINE 1% MDV 20ML VIAL SQ PRN; +LR 1,000 ML IV ONE; +SYNT88TA2 PO
[2020-02-25 10:24] LABS: HEMATOCRIT 33.9 % (36.0-47.0); HEMOGLOBIN 11.6 g/dl (12.0-15.5); MEAN CORPUSCULAR HEMOGLOBIN 29.4 pg (27.0-33.0); MEAN CORPUSCULAR HGB CONC 34.2 g/dl (32.0-36.5); MEAN CORPUSCULAR VOLUME 85.8 fl (80.0-96.0); PLATELET COUNT, AUTOMATED 220 10^3/uL (150-450); RED BLOOD COUNT 3.95 10^6/uL (4.00-5.40); WHITE BLOOD COUNT 5.5 10^3/uL (4.0-10.0)
[2020-02-25 10:36] LABS: HCG, SERUM QUALITATIVE NEGATIVE (NEGATIVE)
[2020-02-25] MEDS ORDERED: BUPIVACAINE HCL 0.25% 30ML VIAL As Ordered ONE (12:04)
[2020-02-25] MEDS ORDERED: propofoL 200 MG/20 ML VIAL As Ordered ONE (12:04)
[2020-02-25] MEDS ORDERED: ROCURONIUM BROMIDE 50 MG/5 ML VIAL As Ordered ONE (12:04)
[2020-02-25] MEDS ORDERED: LIDOCAINE 2% 100MG/5ML SDV (FOR ANES.) As Ordered ONE (12:05)
[2020-02-25] MEDS ORDERED: KETOROLAC 60MG 2ML VIAL As Ordered ONE (12:05)
[2020-02-25] MEDS ORDERED: ONDANSETRON 4MG/2ML VIAL As Ordered ONE (12:05)
[2020-02-25] MEDS ORDERED: SUGAMMADEX SODIUM 500 MG/5 ML VIAL (BRIDION) As Ordered ONE (12:05)
[2020-02-25] MEDS ORDERED: dexameTHASONE 4 MG/ML 1ML VIAL (J1100 PER 1MG) As Ordered ONE (12:06)
[2020-02-25] MEDS ORDERED: MIDAZOLAM INJ 2MG/2ML VIAL (J2250 PER 1MG) As Ordered ONE (12:14)
[2020-02-25] MEDS ORDERED: fentaNYL 250 MCG/5 ML INJECTION (J3010) As Ordered ONE (12:14)
[2020-02-25] MEDS ORDERED: LACRILUBE (AKWA TEARS) OPHTH OINT 3.5 GM As Ordered ONE (12:27)
[2020-02-25] MEDS ORDERED: BUPIVACAINE/EPIN 0.25% 30 ML VIAL As Ordered ONE (12:42)
[2020-02-25] MEDS ORDERED: ACETAMINOPHEN 1000MG 100ML IV BTL (OFIRMEV) (J0131 PER 10MG) As Ordered ONE (13:16)
[2020-02-25] MEDS: HYDROMORPHONE HCL 0.5 MG/ 0.5 ML SYRINGE (J1170 PER 1) IV PRN ×4 (14:11→14:39)
[2020-02-25] MEDS: oxyCODONE 5MG TAB PO PRN ×2 (14:12→14:42)
[2020-02-25] MEDS ORDERED: LR 1,000 ML IV SCH (14:15)
[2020-02-25] MEDS ORDERED: ONDANSETRON 4MG/2ML VIAL IV PRN (14:15)
[2020-02-25] MEDS ORDERED: fentaNYL 100 MCG/2 ML INJECTION (J3010) IV PRN (14:15)
[2020-02-25] MEDS ORDERED: METOCLOPRAMIDE INJ 10MG/2ML VIAL (J2765 PER 1) IV STA (16:42)
--- NOTE | 2020-02-25 17:10 | POST-OPPD ---
Postoperative Procedure Note Date Of Procedure: Feb 25, 2020 PREOPERATIVE DIAGNOSIS: Satisfied parity POSTOPERATIVE DIAGNOSIS: Satisfied parity FINDINGS: normal anatomy PROCEDURE: laparoscopic bilateral salpingectomy SURGEON: leeanna mcclendon do WET ROOM WORKER: Gareth Page MD ANESTHESIA: General SPECIMENS: bilateral fallopian tubes ESTIMATED BLOOD LOSS: < 5cc REPLACED: 1100cc DRAINS: 600cc COMPLICATIONS: none POSTOPERATIVE CONDITION: stable Laparoscopic findings: Normal appearing uterus, bilateral ovaries and fallopian tubes. Anterior cul-de-sac without lesion. Posterior cul-de-sac without lesion. Description of procedure: The risks, benefits, indications and alternatives of the procedure were reviewed with the patient and informed written consent was obtained. The patient was taken to the operating room with IV running. She was placed under general anesthesia with endotracheal tube. Arms tucked. Patient placed in lithotomy. The abdomen, vagina and perineum were prepped and draped in the usual sterile fashion. Perdue inserted. Moist sponge stick placed vaginally for uterine manipulation. Small incision made in umbilicus. Veres needle introduced. Saline drop test confirmed intraabdominal placement. Abdomen insufflated with CO2. Five mm trocar introduced under direct visualization. Surveys reviews no bowel injury or bleeding. Two 5mm ports placed left lower abdomen with direct visualization. Findings as above. Ligasure device used to remove bilateral fallopian tubes. Surgical area inspected for hemostasis. Abdomen desuflated. Camera and instruments removed fr om abdomen. Incision sites closed with 4-O monocryl and dermabond. Perdue and sponge stick removed from the vagina. Count correct x 2. Patient was taken out of OR in stable condition. LEEANNA MCCLENDON DO Feb 25, 2020 17:10
[2020-02-25 17:47] VITALS: BP 130/77
== END 2020-02-25 18:03 | disposition home or self-care (01) ==
LOC: M SDC 09:57
PROVIDERS: ATTEND Obstetrics & Gynecology
DX: Z30.2 Encounter for sterilization (principal); E03.9 Hypothyroidism, unspecified; Z79.899 Other long term (current) drug therapy
CPT/HCPCS: 36415; 58661; 84703; 85027; 86850; 86900; 86901; 88302; J0131; J1100; J1170; J1885; J2250; J2405; J2765; J3010